=== PATIENT | male | born 1985 | race Caucasian/White ===

== ENCOUNTER 2021-01-08 09:22 | Outpatient (CLI) | payer BC, SELFPAY ==
--- NOTE | 2021-01-08 09:15 | DI.RAD_ITS ---
Exam(s) XR SHOULDER RT COMPLETE 2+V EXAM: XR SHOULDER RT COMPLETE 2+V CLINICAL HISTORY: right shoulder pain TECHNIQUE: COMPARISON: No exams were available for comparison FINDINGS: Two views were obtained. There may be slight narrowing of the cartilaginous joint space of the gleno humeral joint. There are soft tissue calcifications probably associated with supraspinatus tendon ne ar its humeral head insertion. Mild subchondral cystic changes noted at the greater tuberosity of th e humerus. No other significant bony abnormality seen. IMPRESSION: Mild degenerative changes as described above. RADIATION DOSE DELIVERED: Total DLP
== END 2021-01-08 09:23 | disposition home or self-care (01) ==
LOC: DIORS 09:22
PROVIDERS: Visit Provider Student in an Organized Health Care Education/Training Program
DX: M19.011 Primary osteoarthritis, right shoulder (principal)
CPT/HCPCS: 73030

== ENCOUNTER 2021-07-31 02:11 | Outpatient (CLI) | payer BC, SELFPAY ==
[2021-07-31 12:17] LABS: Source Nasal/Nares
[2021-07-31 16:49] LABS: COVID-19 PCR Negative (Negative)
== END 2021-07-31 02:12 | disposition home or self-care (01) ==
LOC: LBO 02:11
PROVIDERS: Visit Provider Student in an Organized Health Care Education/Training Program
DX: Z20.822 Contact with and (suspected) exposure to COVID-19 (principal)
CPT/HCPCS: 87635

== ENCOUNTER 2021-08-02 06:00 | Day surgery (SDC) | payer BC, SELFPAY ==
[2021-08-02] VITALS (10 sets, daily range): BP systolic 100–152; BP diastolic 65–96; PULSE 65–76; RESP 14–26; TEMP 36.2–36.7; O2SAT 95–100; BMI 26.8
--- NOTE | 2021-08-02 06:31 | W.ANESPRE ---
General Info Date of Service Date Performed: 08/02/21 Height: 6 ft 5 in Weight: 102.5 kg Body Mass Index (BMI): 26.8 Surgical Procedure: Operation Date: 08/02/21 07:40 Proposed Procedure Side Surgeon p Shoulder Rotator Cuff Arthroscopic w/revision extensive debridement,labral repair,subcromial decompression Right Lucio Monet MD Meds Allergies and Home Medications Allergies Allergy/AdvReac Type Severity Reaction Status Date / Time No Known Allergies Allergy Verified 08/02/21 06:20 Home Medication Medication Instructions Recorded aspirin 81 mg tablet,delayed 81 mg PO DAILY 14 Days #14 tab 08/02/21 release naproxen 250 mg tablet 250 - 500 mg PO BID PRN #40 tab 08/02/21 oxycodone 5 mg tablet 5 - 10 mg PO Q4H PRN #18 tab MDD 08/02/21 30 mg Current Visit Medications: Current Medications Generic Name Dose Route Start Last Admin Trade Name Freq PRN Reason Stop Dose Admin Ringer's Solution 1,000 mls @ 100 mls/hr 08/02/21 06:00 IV 08/22/21 23:59 INFUSION CARL Cefazolin Sodium/Dextrose 2 gm in 50 mls @ 100 mls/hr 08/02/21 06:00 Ancef Duplex IVPB 08/02/21 23:59 PREOP CARL IV Miscellaneous Supplies 1 each 08/02/21 06:00 Iv Access IV 08/22/21 23:59 DIRECTED CARL Sodium Chloride 0 ml 08/02/21 06:00 Normal Saline Flush 10 Ml Syr IV 08/22/21 23:59 PRN PRN Sodium Chloride 0 ml 08/02/21 06:00 Normal Saline 10 Ml Vial IJ 08/22/21 23:59 DIRECTED PRN Sterile Water 0 ml 08/02/21 06:00 Water,Injection,Sterile 10 Ml Vial IJ 08/22/21 23:59 DIRECTED PRN PFSH Active Problems Active Problems: Problem Status Onset Code Rotator cuff tear, right M75.101 Right carpal tunnel syndrome G56.01 Biceps tendinitis of right shoulder M75.21 SLAP lesion of right shoulder S43.431A Bursitis of right shoulder M75.51 Surgical History Surgical History History of arthroscopy of right shoulder Tobacco Smoking/Tobacco Use Status: Never Alcohol Alcohol Intake: current Alcohol intake frequency: a few times a week Alcohol type: hard liquor Substance Use Substance use: Daily Substance use type: marijuana Vital Signs and Lab Results Vital Signs Most Recent Vital Signs in EMR: Most Recent Vital Signs Temp Pulse Resp BP Pulse Ox 36.6 C 76 16 152/93 H 100 08/02/21 06:11 08/02/21 06:11 08/02/21 06:11 08/02/21 06:11 08/02/21 06:11 Lab Results Blood Type / Crossmatch: No Data to Display Complete Blood Count: No Data to Display Complete Metabolic Panel: No Data to Display Liver Function Panel: No Data to Display Coagulation Panel: No Data to Display Cardiac Panel: No Data to Display Arterial Blood Gas: No Data to Display Venous Blood Gas: No Data to Display Pancreas Panel: No Data to Display Thyroid Panel: No Data to Display Infectious Disease: Coronavirus (COVID-19)(PCR) Negative (Negative) 07/31/21 10:50 07/31/21 Coronavirus 2019 Source Nasal/Nares 07/31/21 10:50 07/31/21 Blood Cultures: No Data to Display Toxicology Panel: No Data to Display Anesthesia Assessment and Plan Anesthesia History Personal History: No History of Anesthesia Complications Family History: No Family History of Anesthesia Complications Exercise Tolerance Exercise Tolerance: Metabolic Equivalents>4 Pertinent Negatives Pertinent Negatives: No Symptoms of GERD, No Major Cardiovascular Symptoms or Complaints, No Major Pulmonary Symptoms or Complaints and No History of CVA/TIA Cardiac & Pulmonary Exam Cardiac Exam: Normal S1/S2 Heart Sounds Pulmonary Exam: Clear Bilateral Breath Sounds Implantable Cardiac Device Does patient have a Pacemaker or an ICD?: No Airway Exam Known Difficult Airway: No Mallampati Class: 2 Mouth Opening: Normal (> 3cm) Thyromental Distance: Greater than 3 cm Facial Hair: Full [place] Neck Range of Motion: Full ROM Neck Circumference: Normal Teeth Condition: Normal Dentition and Loose or Chipped (Chipped front right tooth) ASA Classification ASA Score: ASA 2 (Regular drinking and Marijuana use) Emergency Case?: No NPO Status NPO Status: NPO Clears >2 hours, Solids >8 hours Anesthesia Plan Resuscitation Status: Full Code Anesthesia Technique: General Anesthesia Airway Planned: Endotracheal Tube Pain Management: Surgeon and patient request nerve block Monitors Used: Standard Monitors
[2021-08-02] MEDS: Lactated Ringers 1,000 ML 100 ML IV (06:53)
[2021-08-02] MEDS: ceFAZolin 2 GM/50 ML BAG IVPB (07:41)
--- NOTE | 2021-08-02 08:18 | W.ANESNERVE ---
Nerve Block Single Injection Procedure Date and Time Date Performed: 08/02/21 Procedure Start: 07:10 Location Where Procedure Performed Procedure Location: Day Surgery Unit Reason Performed: Postoperative Analgesia Requesting Provider: Lucio Monet Timeout Performed Timeout Performed: Yes Monitoring Used ECG, Blood Pressure and SpO2 Sterility Sterility: Hand Hygiene, Surgical Cap, Surgical Mask, Sterile Gloves, Eye Protection and Chlorhexidine Sedation Given During Procedure Sedation Given (Indicate Dose Given): Versed IV Dose:: 2mg Patient Mental Status Patient Mental Status: Sedate with meaningful communication Nerve Block 1st Nerve Block: Laterality: Right Block Type: Interscalene Needle / Catheter Used: 100mm SonoPlex II Local Anesthetic Bolus (Indicate Dose Given): Lidocaine used for local infiltration of skin, Injected in 3-5ml increments after negative blood aspiration, Bupivacaine 0.5% Dose:: 10ml and Exparel Dose:: 10ml Additives (Indicate Dose Given): Normal Saline (for hydrodissection) Ultrasound: Sterile probe cover and gel used Ultrasound Image Saved?: Yes Nerve Stimulator: Not Used Paresthesia: None Procedure Tolerated: No Complications and Patient tolerated well Procedure Outcome: Successful Performed By: Meaghan Das Supervised By: Clint Peña
[2021-08-02] MEDS: EPINEPHrine 30 MG/30 ML VIAL (09:45)
--- NOTE | 2021-08-02 10:01 | W.PM.DSUDISC ---
Discharge Plan Disposition Patient Disposition: HOME Condition: Stable Discharge Details Reason For Visit: Right shoulder surgery Attending Provider: Lucio Monet Primary Care Provider: None,None Home Meds and New Rx's Prescriptions: New naproxen 250 mg tablet 250 - 500 mg PO BID PRNQty: 40 0RF Rx Instructions: take with a meal aspirin 81 mg tablet,delayed release (DR/EC) 81 mg PO DAILY 14 Days Qty: 14 0RF oxycodone 5 mg tablet 5 - 10 mg PO Q4H MDD 30 mg PRN (Reason: moderate to severe pain) Qty: 18 0RF Discontinued ibuprofen 200 mg tablet 200 mg PO Q6H PRN0RF Discharge Instructions Additional Instructions: Surgery: Right shoulder arthroscopy with revision rotator cuff repair with allograft augmentation, extensive debridement, and subacromial decompression. Activity: For 6 weeks, you should keep your arm at your side in a neutral position at all times except for physical therapy. Do not try to lift or raise your arm using your own muscles. You should use the sling whenever you are out of the house. You may have to adjust the abduction pillow or remove it for comfort. At home it is best to remove the sling and rest the arm on a pillow at your side or support the operative side with your other hand. You may allow the arm to dangle at your side. A physical therapy prescription will be sent electronically to begin in about 3 weeks. Prescriptions: Aspirin 81 mg take 1 daily to prevent a blood clot for 2 weeks Naproxen 250 mg take 1-2 every 12 hours with a meal as needed for moderate pain Oxycodone 5 mg take 1-2 every 4-6 hours as needed for severe pain You may use [id number] Tylenol (acetaminophen) as needed for mild pain. These pain medications may be taken all at once or in different combinations as needed. Also, recommend Colace (docusate) as a stool softener as surgery and pain medicine cause constipation. Dressings: Remove shoulder bandage after 3 days. Leave the sticky Steri-Strips in place until they fall off or remove them after you shower. Cover the incisions with Band-Aids or leave them open to air. You may shower after 5 days. Follow-up: 10-[address] Monet You may take off the leg compression stockings this evening at home. You may also leave them on a few days longer if you have a history of leg swelling or edema. Let us know right away if you develop any redness, drainage, fevers, chest pain, or trouble breathing. Do not drink alcohol or drive for at least 24 hours after anesthesia. Please call the office during business hours with any questions or concerns. Referrals: Lucio Monet MD [ [facility] STAFF PHYSICIAN] - Discharge Orders Discharge Orders: Discharge Order (Routine); Ordered 08/02/21 Ordered By: Lucio Monet DS: Diagnosis Discharge Diagnosis (1) Rotator cuff tear, right: Status: Acute
--- NOTE | 2021-08-02 11:00 | ROE_ITS ---
Operative Note Operative Note DATE OF PROCEDURE: 08/02/21 PRE-OP DIAGNOSIS: Right: 1. Rotator cuff tear 2. Labral tear 3. Impingement POST-OP DIAGNOSIS: same PROCEDURE: Right: 1. Revision otator cuff repair, CPT# 27181. This involved repair of the supraspinatus via bursal dermal allograft augmentation with ji and suture anchors to optimize tissue coverage over the greater tuberosity. 2. Extensive debridement, CPT# 14766. This involved using arthroscopic hand instruments, power instruments, and radiofrequency instruments to remove multiple permanent sutures from prior labral repairs, debride areas of labral tearing, SLAP tear, partial articular tearing, synovitis, and resect signifcantly frayed torn MGHL tissue working within the glenohumeral joint anteriorly, superiorly and posteriorly. 3. Subacromial decompression with partial acromioplasty, CPT# 49316. This involved using arthroscopic power instruments and a radiofrequency wand to complete a bursectomy and remove bone on the undersurface of the acromion to increase acromiohumeral interval and provide bone marrow stimulation for revision repair. The ophthalmic medical assistant was medically required in order to help assist in techniques above, which require positioning the arm, holding the arthroscope, and manipulating multiple instruments and sutures at the same time. This cannot be done without the help of an experienced ophthalmic medical assistant. SURGEON: Lucio Monet FAIRING MAN: Kehinde Terry Refer to Anesthesia Record PATHOLOGY: none sent Patient was transported to: PACU Patient's condition: stable Implants: Arthrex: 2.9mm PushLock x2 CuffMend dermal allograft Indications: The patient was diagnosed with the above conditions and appropriately indicated for surgical intervention. Please see complete medical record for details. Findings: Exam under anesthesia: Full range of motion, no instability Glenohumeral joint: Profound split tearing fraying [facility] L, prior anterior labral repair, and superior labrum. Intact subscapularis and largely intact articular sided rotator cuff without any obvious full-thickness defect. Subacromial space: Mild bursitis. Mild subacromial bone spur. High-grade quite degenerative central somewhat medial transtendinous supraspinatus recurrent rotator cuff tear over chronic fibrinous greater tuberosity tissue. Poor quality tendon for revision repair. Procedure Description: In the operating room, general anesthesia was induced. Bilateral shoulders were examined. The patient was positioned in the beachchair position. All bony prominences were well-padded. Preoperative antibiotics were administered. The shoulder was prepped and draped in the usual sterile fashion. The correct patient, procedure, and side of the procedure were all verified prior to incision. Starting through the posterior portal a standard complete diagnostic arthroscopy was performed of the glenohumeral joint including inspection of the long head of the biceps, anterior and superior labrum, subscapularis tendon, supraspinatus and infraspinatus tendons, and axillary recess. The glenoid and humeral head cartilage as well as the posterior labrum were inspected from an anterior viewing portal. Significant findings and interventions noted above. Significant debridement removing multiple about 3 permanent suture prominence Stotz anterior inferior middle and superior anterior labrum. Debrided anterior superior and posterior labrum. Resect significantly frayed impinging the glenohumeral joint what is probably [facility] L and some anterior interval capsular tissue. Resect, tissue to stable margin. Debrided partial articular sided supraspinatus tearing. Debride mild upper margin subscapularis fraying. Supraspinatus demonstrated high-grade bursal tearing. Likely near full- thickness but no obvious communication. Extremely poor tissue quality in the joint and bursal. Consistent with possible calcific tendinitis and degeneration. There was minimal healthy tissue for revision repair. Resection to stable margin would have resulted in large full-thickness rotator cuff defect which is not ideal for young active patient. Pain likely improved given significant glenohumeral debridement. Rotator cuff cautiously debrided to relatively stable margin. Microfracture performed about the greater tuberosity zone of rotator cuff fraying and tearing. Decision made to proceed with dermal allograft augmentation. Subacromial decompression was then completed working about the rotator cuff personally and exposing and debriding the underside of the acromion to optimize bone marrow stimulation here as well. The cuff mend Arthrex system was used to deploy a graft on the bursal side located centrally over the failed prior cuff repair and current defect area and providing coverage over the greater tuberosity laterally. The graft was secured with 4 absorbable ji medially and to push lock anchors far laterally. The graft was inspected and showed good coverage over the prior defect and stability through range of motion providing an augmentation type repair in this usual revision setting. The shoulder was drained of arthroscopic fluid. All portal sites were copiously irrigated. These incisions were closed using 3-0 Monocryl in a buried fashion and then covered with Mastisol, Steri-Strips, Xeroform, dry gauze, and ABDs. The dressings were covered and secured with Medipore tape. The operative extremity was placed into a sling for immobilization. The patient awoke from anesthesia without complication and was transferred to the recovery room in a stable condition.
--- NOTE | 2021-08-02 12:38 | W.ANESPOSTOP ---
Postoperative Evaluation Date, Time and Location Date Performed: 08/02/21 Time Performed: 12:39 Patient Location: Day Surgery Unit Vital Signs Most Recent Imported Vital Signs: Most Recent Vital Signs Temp Pulse Resp BP Pulse Ox 36.4 C L 72 16 135/90 98 08/02/21 12:05 08/02/21 12:05 08/02/21 12:05 08/02/21 12:05 08/02/21 12:05 Pain Score Most Recent Pain Score: Most Recent Pain Score Pain Level 0 08/02/21 12:05 Assessment Mental Status: Awake (Alert & Oriented to Patient Baseline) Airway and Respiratory Function: Patent airway with normal (patient baseline) respiratory exam Cardiovascular Function: Hemodynamically Stable Hydration Status: Adequately Hydrated Nausea & Vomiting: No Nausea or Vomiting Pain: Pt. Denies Any Pain Peripheral Nerve Block: Regional nerve block not resolved at time of post operative discharge
== END 2021-08-02 13:25 | disposition home or self-care (01) ==
PROVIDERS: Visit Provider Student in an Organized Health Care Education/Training Program
PROC: (CPT 29827; principal; 2021-08-02 07:30)
DX: M75.111 Incomplete rotator cuff tear or rupture of right shoulder, not specified as traumatic (principal); M24.111 Other articular cartilage disorders, right shoulder; M75.41 Impingement syndrome of right shoulder
CPT/HCPCS: 29827; 29826; 29823; J0690; J1100; J2001; J2250; J2370; J2405